=== PATIENT | male | born 1970 | race Hispanic/Latino ===

== ENCOUNTER 2017-06-07 11:53 | Outpatient (CLI) | payer BC ==
[2017-06-07 12:22] LABS: Basophils % (Auto) 1.1 % (0.0-1.8); Eosinophils % (Auto) 2.2 % (0.0-4.3); Hematocrit 34.5 % (35.5-45.6); Hemoglobin 11.4 gm/dl (11.8-15.2); Mean Corpuscular HGB Conc 33 % (32-34); Mean Corpuscular Hemoglobin 27 pg (28-32); Mean Corpuscular Volume 81 fl (84-94); Platelet Count 277 K/mm3 (140-440); Red Blood Count 4.26 M/mm3 (3.65-5.03); Red Cell Distribution Width 16.4 % (13.2-15.2); White Blood Count 8.5 K/mm3 (4.5-11.0)
[2017-06-07 12:41] LABS: Alanine Aminotransferase 22 units/L (7-56); Albumin 3.4 g/dL (3.9-5); Alkaline Phosphatase 111 units/L (35-129); Anion Gap 19 mmol/L; BUN/Creatinine Ratio 50; Bilirubin,Total < 0.20 mg/dL (0.1-1.2); Blood Urea Nitrogen 25 mg/dL (9-20); Calcium 8.5 mg/dL (8.4-10.2); Carbon Dioxide 28 mmol/L (22-30); Chloride 98.4 mmol/L (98-107); Glucose 106 mg/dL (75-100); Potassium 4.1 mmol/L (3.6-5.0); Sodium 141 mmol/L (137-145); Total Protein 6.9 g/dL (6.3-8.2); Triglycerides 84 mg/dL (2-149)
[2017-06-07 13:25] LABS: Bilirubin,Direct < 0.2 mg/dL (0-0.2)
== END 2017-06-07 11:54 | disposition home or self-care (01) ==
LOC: LABHHL 11:53
DX: R63.4 Abnormal weight loss (principal)
CPT/HCPCS: 36415; 80053; 80074; 83735; 84100; 84134; 84478; 85025